=== PATIENT | male | born 1965 | race Caucasian/White ===

== ENCOUNTER 2021-04-30 18:41 | Emergency (ER) | payer OTHER, SELFPAY ==
[2021-04-30 18:43] VITALS: BP 136/94; PULSE 138; RESP 19; TEMP 36.6; O2SAT 99
--- NOTE | 2021-04-30 20:05 | ED.MALEGU ---
HPI - Male Genitourinary General Chief complaint: Urogenital-Male Stated complaint: trouble urinating Time Seen by Provider: 04/30/21 19:20 Related Data Allergies Allergy/AdvReac Type Severity Reaction Status Date / Time NSAIDS (Non-Steroidal Allergy Abdominal Verified 04/30/21 18:47 Anti-Inflamma Pain Course Vital Signs Vital signs: Vital Signs Temperature 36.6 C 04/30/21 18:43 Pulse Rate 138 H 04/30/21 18:43 Respiratory Rate 19 04/30/21 18:43 Blood Pressure 136/94 H 04/30/21 18:43 Pulse Oximetry 99 04/30/21 18:43 Temperature 36.6 C 04/30/21 18:43 Pulse Rate 138 H 04/30/21 18:43 Respiratory Rate 19 04/30/21 18:43 Blood Pressure 136/94 H 04/30/21 18:43 Pulse Oximetry 99 04/30/21 18:43 Discharge Plan Discharge Clinical Impression: Prostatitis Patient Disposition: Home, Self-Care Instructions: Antibiotic Form Additional Instructions: Call for urology appointment tomorrow morning Meanwhile continue the medications prescribed to you already Follow-up/Referrals: Scot,Bay Pathak MD [Primary Care Provider] - Walter Coburn MD [Physician] - (urology follow up )
[2021-04-30 20:08] LABS: Basophils Absolute Auto 0.1 K/mm3 (0.0-0.1); Basophils Percent Auto 1.1 % (0.2-1.2); Eosinophils Absolute Auto 0.1 K/mm3 (0-0.3); Eosinophils Percent Auto 2.3 % (0-4.4); Hematocrit 45.7 % (42.0-52.0); Hemoglobin 15.6 g/dL (14.0-18.0); Immature Granulocyte Absolute 0.01 K/mm3 (0.00-0.031); Immature Granulocyte Percent A 0.2 % (0-0.5); Lymphocytes Percent Auto 15.8 % (18.3-44.2); Mean Corpuscular HGB Conc 34.1 g/dl (32-36); Mean Corpuscular Hemoglobin 30.8 pg (26-34); Mean Corpuscular Volume 90.1 fl (80-100); Mean Platelet Volume 8.8 fl (7.4-10.4); Monocytes Absolute Auto 0.5 K/mm3 (0.1-0.6); Monocytes Percent Auto 11.7 % (2.6-8.5); Neutrophils Absolute Auto 3.1 K/mm3 (1.3-6.7); Neutrophils Percent Auto 68.9 % (45.5-73.1); Platelet Count Result 122 k/mm3 (150-375); Red Blood Count 5.07 M/mm3 (4.6-6.20); Red Cell Distribution Width 12.2 % (11.5-14.5); White Blood Count 4.4 K/mm3 (4.5-10.0)
[2021-04-30 20:11] VITALS: BP 128/88; PULSE 102; RESP 16; TEMP 36.4; O2SAT 98
[2021-04-30 20:17] LABS: Anion Gap 5 mmol/L (8-16); Blood Urea Nitrogen 19 mg/dL (9-20); Calcium 8.9 mg/dL (8.4-10.2); Carbon Dioxide 27 mmol/L (22-30); Chloride 103 mmol/L (98-107); Estimated CRCL calculation 85 ml/min; Estimated Glomerular Filt Rate > 60; Glucose 143 mg/dL (65-110); Potassium 3.5 mmol/L (3.4-5.0); Sodium 135 mmol/L (137-145)
--- NOTE | 2021-04-30 20:53 | ED.MALEGU ---
HPI - Male Genitourinary General Chief complaint: Urogenital-Male Stated complaint: trouble urinating Time Seen by Provider: 04/30/21 19:20 Source: patient Mode of arrival: ambulatory Limitations: no limitations History of Present Illness HPI Narrative: 55-year-old male Patient presents because of difficulty with urination and perineal pain Patient was seen in his primary care office earlier today for this and given prescriptions for Cipro and Flomax but came to the ER this evening because he is not feeling better yet and feels like it is still difficult to void He does not have a discharge Does not have any pain or swelling in the scrotum No fever or other constitutional symptoms He reported voiding at home and scans at 140 cc here before trying to void for UA Related Data Allergies Allergy/AdvReac Type Severity Reaction Status Date / Time NSAIDS (Non-Steroidal Allergy Abdominal Verified 04/30/21 18:47 Anti-Inflamma Pain Review of Systems Review of Systems: All systems reviewed & are unremarkable except as noted in HPI and below Constitutional: Constitutional: Denies chills and Denies fever(s) ENT: Denies headache(s) and Reports sore throat Cardiovascular: Cardiovascular: Denies dyspnea Respiratory: Respiratory: Denies cough and Denies dyspnea Gastrointestinal: Gastrointestinal: Denies abdominal pain, Denies diarrhea and Denies vomiting Genitourinary: Genitourinary: Reports oliguria, Reports dysuria and Reports urinary frequency Musculoskeletal: Musculoskeletal: Denies deformity, Denies arthralgias, Denies joint swelling and Denies numbness Integumentary/Breasts: Skin/Breast: Denies wounds Psychiatric: Psychiatric: Reports no additional psychiatric complaints Endocrine: Endocrine: Reports no additional endocrine complaints Hematologic/Lymphatic: Hematologic/Lymphatic: Reports no additional hematologic/lymphatic complaints Allergic/Immunologic: Allergic/Immunologic: Reports no additional allergic/immunologic complaints Exam Const: General: cooperative and no acute distress Orientation/consciousness: patient oriented x3 (alert) HENMT: Head: normal to inspection, normocephalic and atraumatic Ears: external ears normal General nose exam: no epistaxis Eyes: Conjunctivae: conjunctivae normal EOM: EOMs intact bilaterally Neck: Neck: normal visual inspection, supple and no JVD Resp: Effort & Inspection: normal respiratory effort and not labored Auscultation: other (BS =) : General: Yes no CVA tenderness Male General Exam: Yes normal external exam Other: Enlarged prostate Does seem to be a little tender on MICHAEL however patient says not really the same sensation that he is bothered by and indicates that it more feels like somebody is brushing him with a finger at the base of the scrotum There is no rash, no swelling Skin: General skin exam: normal color and no rashes or lesions noted Neuro: General: patient oriented x3 (alert) and moves all extremities Speech: normal speech Extrem: General: normal to inspection and no pedal edema Psych: Affect: normal affect Course Vital Signs Vital signs: Vital Signs Temperature 36.6 C 04/30/21 18:43 Pulse Rate 138 H 04/30/21 18:43 Respiratory Rate 19 04/30/21 18:43 Blood Pressure 136/94 H 04/30/21 18:43 Pulse Oximetry 99 04/30/21 18:43 Temperature 36.4 C 04/30/21 20:11 Pulse Rate 102 H 04/30/21 20:11 Respiratory Rate 16 04/30/21 20:11 Blood Pressure 128/88 04/30/21 20:11 Pulse Oximetry 98 04/30/21 20:11 MDM - Male Genitourinary Medical Records Attestation: I reviewed the patient's medical records. Lab Data Attestation: I reviewed the patient's lab results. Result diagrams: 04/30/21 20:01 04/30/21 20:01 Labs: Lab Results 04/30/21 04/30/21 Range/Units 20:01 20:01 WBC 4.4 L (4.5-10.0) K/mm3 RBC 5.07 (4.6-6.20) M/mm3 Hgb 15.6 (14.0-18.0) g/dL Hct 45.7 (
[2021-04-30 20:59] LABS: Add Urine Microscopic? NO; Appearance Urine Clear (Clear); Bilirubin Urine Negative (Negative); Blood Urine Negative (Negative); Color Urine Yellow (Yellow); Glucose Urine UA Negative (Negative); Ketones Urine Negative (Negative); Leukocyte Esterase Ur Negative LEU/UL (Negative); Nitrate Urine Negative (Negative); Protein Urine Negative (Negative); Specific Grav Ur 1.016 (1.001-1.035); Urobilinogen Urine Negative mg/dL (<2.0)
[2021-04-30 21:00] VITALS: BP 128/74; PULSE 92; RESP 16; TEMP 36.6; O2SAT 98
--- NOTE | 2021-04-30 21:33 | PC.NURSE ---
LR not given per V.O Dr. Bennett because HR 102
== END 2021-04-30 21:37 | disposition home or self-care (01) ==
PROVIDERS: Emergency Provider Emergency Medicine; PCP Family Medicine
DX: N41.9 Inflammatory disease of prostate, unspecified (principal)
CPT/HCPCS: 36415; 80048; 81003; 85025; 99283

== ENCOUNTER 2021-09-16 05:23 | Emergency (ER) | payer OTHER, SELFPAY ==
--- NOTE | ~2021-09-16 | XR_ITS ---
EXAMINATION: XR chest 2V DATE: 09/16/2021 06:24 INDICATION: Chest pain TECHNIQUE: PA and lateral views of the chest are obtained. COMPARISON: None available FINDINGS: The lungs are free of acute opacities. There is no pleural effusion or pneumothorax. The ca rdiomediastinal silhouette is normal. There is mild thoracic spondylosis. IMPRESSION: 1. No acute cardiopulmonary abnormality. Reviewed, dictated and finalized at location A.
--- NOTE | 2021-09-16 05:28 | ECG_ITS ---
Measurements Intervals [place] Rate: 75 P: 6 AK: 192 QRS: -6 QRSD: 110 T: 30 QT: 395 QTc: 442 Interpretive Statements SINUS RHYTHM NORMAL ELECTROCARDIOGRAM NO PREVIOUS ECG AVAILABLE FOR COMPARISON Electronically Signed On 09-16-2021 7:20:44 CDT by Carlos Hill M.D.
[2021-09-16 05:29] VITALS: BP 146/90; PULSE 81; RESP 17; TEMP 36.5; O2SAT 97
--- NOTE | 2021-09-16 05:34 | PC.NURSE ---
Patient states he is on abx for a recent prostate infection.
[2021-09-16 05:44] LABS: Basophils Absolute Auto 0.1 K/mm3 (0.0-0.1); Basophils Percent Auto 1.4 % (0.2-1.2); Eosinophils Absolute Auto 0.2 K/mm3 (0-0.3); Eosinophils Percent Auto 5.3 % (0-4.4); Hematocrit 46.8 % (42.0-52.0); Hemoglobin 15.6 g/dL (14.0-18.0); Immature Granulocyte Absolute 0.01 K/mm3 (0.00-0.031); Immature Granulocyte Percent A 0.2 % (0-0.5); Lymphocytes Absolute Auto 1.04 K/mm3 (0.9-3.2); Lymphocytes Percent Auto 24.1 % (18.3-44.2); Mean Corpuscular HGB Conc 33.3 g/dl (32-36); Mean Platelet Volume 8.6 fl (7.4-10.4); Monocytes Absolute Auto 0.4 K/mm3 (0.1-0.6); Monocytes Percent Auto 8.6 % (2.6-8.5); Neutrophils Absolute Auto 2.6 K/mm3 (1.3-6.7); Neutrophils Percent Auto 60.4 % (45.5-73.1); Platelet Count Result 154 k/mm3 (150-375); Red Blood Count 5.38 M/mm3 (4.6-6.20); Red Cell Distribution Width 12.5 % (11.5-14.5); White Blood Count 4.3 K/mm3 (4.5-10.0)
--- NOTE | 2021-09-16 05:48 | ED.GENADULT ---
HPI - General Adult General Chief complaint: Chest Pain <Elías Loza MD - Last Filed: 09/16/21 06:44> Stated complaint: Chest pain, SOB <Elías Loza MD - Last Filed: 09/16/21 06:44> Time Seen by Provider: 09/16/21 05:37 <Elías Loza MD - Last Filed: 09/16/21 06:44> History of Present Illness HPI narrative: Patient is a 55-year-old gentleman who presents to the emergency department with chief complaint of chest pain. Patient states that he started having pain on Friday reports that it was intermittent and around 10 PM this evening he started having continual pain in his chest. The patient states it is more midsternal and radiates to his back. The patient denies diaphoresis denies vomiting or diarrhea. Patient reports he had a stress test several years ago reports that he has no stents and no prior history of cardiac disease. <Elías Loza MD - Last Filed: 09/16/21 06:44> Related Data Home medications: Home Medications Medication Instructions Recorded Confirmed ciprofloxacin HCl 500 mg tablet tablet 09/16/21 lactulose 10 gram/15 mL oral ml 09/16/21 solution linaclotide 72 mcg capsule cap 09/16/21 (Linzess) losartan 50 mg-hydrochlorothiazide tablet 09/16/21 12.5 mg tablet pravastatin 40 mg tablet tablet 09/16/21 sulfamethoxazole 800 tablet 09/16/21 mg-trimethoprim 160 mg tablet tamsulosin 0.4 mg capsule cap PO 09/16/21 <Elías Loza MD - Last Filed: 09/16/21 06:44> Allergies/adverse reactions: Allergies Allergy/AdvReac Type Severity Reaction Status Date / Time NSAIDS (Non-Steroidal Allergy Abdominal Verified 09/16/21 05:33 Anti-Inflamma Pain <Elías Loza MD - Last Filed: 09/16/21 06:44> Review of Systems Review of Systems: A 10 system review of systems was completed on the patient and is negative except for what is stated in the HPI. Nursing and ancillary documentation was reviewed. <Elías Loza MD - Last Filed: 09/16/21 06:44> Exam Narrative: GENERAL: Well-appearing, well-nourished, and in no acute distress. HEAD: Normocephalic, atraumatic. EYES: PERRLA and EOMI. ENT: Nares clear, no rhinorrhea or epistaxis. Mucous membranes moist. NECK: Supple. CHEST: Clear to auscultation. No respiratory distress. HEART: Regular rate and rhythm. No murmur heard. Normal peripheral pulses. ABDOMEN: Soft, nontender, nondistended, normal active bowel sounds. EXTREMITIES: Normal range of motion. No edema. SKIN: Warm, dry, no rash. NEURO: No focal deficits. Alert and oriented x3. PSYCH: Normal mood and affect. <Elías Loza MD - Last Filed: 09/16/21 06:44> Course Course Emergency Course: EKG interpreted by pa sinus rhythm rate of [address] elevation or ST depression Chest x-ray shows no focal infiltrates or widened mediastinum Initial troponin is negative. Patient will be signed out to the day provider pending repeat delta troponin <Elías Loza MD - Last Filed: 09/16/21 06:44> Reevaluation(s) Reevaluation #1: 55-year-old male presenting to the emergency department for evaluation of chest pain. Patient states that the chest wall pain is still present. Patient had negative serial troponins. EKG showed no evidence of acute STEMI. Patient denies any worsening of the pain with exertion. Patient has had a stress test as of 2 to 3 years ago. 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 Patient denies any prior history of MS. Patient was encouraged to have close follow-up and was also educated on reasons to return to the emergency room. All questions and concerns were addressed. <Christiano Nuñez MD - Last Filed: 09/16/21 10:27> Vital Signs Vital signs: Vital Signs Temperature 97.7 F 09/16/21 05:29 Pulse Rate 81 09/16/21 05:29 Respiratory Rate 17 09/16/21 05:29 Blood Pressure 146/90 H 09/16/21
[2021-09-16] MEDS: ASPIRIN 81 MG CHEWABLE TABLET 324 MG PO (05:52)
[2021-09-16 05:55] LABS: Alanine Aminotransferase 31 U/L (6-50); Albumin Level 4.4 g/dL (3.5-5.1); Alkaline Phosphatase 94 U/L (38-126); Anion Gap 4 mmol/L (8-16); Aspartate Amino Transferase 30 U/L (17-59); Bilirubin,Total 0.7 mg/dL (0.2-1.3); Blood Urea Nitrogen 18 mg/dL (9-20); Calcium 8.9 mg/dL (8.4-10.2); Carbon Dioxide 27 mmol/L (22-30); Chloride 107 mmol/L (98-107); Estimated CRCL calculation 84 ml/min; Estimated Glomerular Filt Rate > 60; Glucose 119 mg/dL (65-110); Lipase 67 U/L (23-300); Potassium 3.2 mmol/L (3.4-5.0); Sodium 138 mmol/L (137-145)
[2021-09-16 05:59] LABS: INR 1.1; Partial Thromboplastin Time 30.5 SECONDS (22.3-36.8); Prothrombin Time 13.6 Seconds (11.1-14.7)
[2021-09-16 06:07] LABS: Troponin I < 0.012 ng/mL (0.000-0.034)
--- NOTE | 2021-09-16 06:20 | PC.NURSE ---
Patient in xray at this time.
[2021-09-16 06:47] VITALS: BP 132/77; PULSE 73; RESP 14; O2SAT 99
[2021-09-16 06:48] VITALS: PULSE 75; RESP 16; O2SAT 99
[2021-09-16 07:01] VITALS: BP 123/84; PULSE 70; RESP 15; O2SAT 99
[2021-09-16 07:30] VITALS: BP 128/90; PULSE 73; RESP 14; O2SAT 99
[2021-09-16 08:01] VITALS: BP 129/88; PULSE 70; RESP 12; O2SAT 100
[2021-09-16 08:57] LABS: Troponin I < 0.012 ng/mL (0.000-0.034)
== END 2021-09-16 09:11 | disposition home or self-care (01) ==
PROVIDERS: Emergency Provider Emergency Medicine; PCP Family Medicine
DX: R07.89 Other chest pain (principal)
CPT/HCPCS: 36415; 71046; 80053; 83690; 84484; 85025; 85610; 85730; 93005; 99284; A9270